=== PATIENT | female | born 1995 | race Caucasian/White ===

== ENCOUNTER 2018-09-30 10:18 | Day surgery (SDC) | payer OTHER ==
[2018-09-30] MEDS ORDERED: Adacel (T-DAP) 0.5 ML SYRINGE ONE (10:53)
[2018-09-30] MEDS ORDERED: Lidocaine 1% (PF) 30 ML VIAL ONE (10:56)
[2018-09-30] MEDS ORDERED: Bupivacaine 0.5% 10 ML VIAL ONE (10:56)
[2018-09-30] MEDS ORDERED: Ondansetron PF 4 MG/2 ML Vial ONE ×2 (10:56→13:05)
--- NOTE | 2018-09-30 11:16 | RAD ---
RIGHT FINGER THREE VIEWS: HISTORY: Laceration. Injury. COMPARISON: None. FINDINGS: There is a flexion deformity of the distal interphalangeal joint of the small finger with overlying s oft tissue defect. On the lateral radiograph, there may be a punctate radiopacity projecting over th e middle phalanx head. IMPRESSION: Likely extensor tendon injury at the distal interphalangeal joint of the small finger with overlying laceration and possibly a small punctate radiopaque foreign object projecting over the middle phalanx head, only seen on the lateral radiograph. POS: AMAURY
[2018-09-30 11:36] LABS: #Lymphocytes 1.1 thou/uL (1.20-3.40); #Monocytes 0.4 thou/uL (0.11-0.59); #Neutrophils 10.4 thou/uL (1.40-6.50); %Basophils 0.1 % (0.0-1.0); %Eosinophils 0.1 % (0.0-10.0); %Lymphocytes 8.8 % (21.0-51.0); %Monocytes 3.7 % (0.0-10.0); %Neutrophils 87.3 % (42.0-75.0); Hemoglobin 14.1 g/dL (12.0-16.0); Mean Corpuscular Volume 94.2 fL (78.0-98.0); Platelet Count 229 thou/uL (130-400); RBC Distribution Width 10.8 % (11.5-14.5); Red Blood Cell (RBC) Count 4.42 mill/uL (4.20-5.40); White Blood Cell (WBC) Count 11.9 thou/uL (4.8-10.8)
[2018-09-30 11:58] LABS: ALT (SGPT) 29 U/L (8-55); AST (SGOT) 30 U/L (5-34); Albumin 4.5 g/dL (3.5-5.0); Alkaline Phosphatase 48 U/L (40-150); Anion Gap 16 mmol/L (10-20); BUN (Urea Nitrogen) 15 mg/dL (7.0-18.7); Bilirubin, Total 0.4 mg/dL (0.2-1.2); Calc. Creatinine Clearance 0 mL/min (70-130); Calcium 10.2 mg/dL (7.8-10.44); Carbon Dioxide 22 mmol/L (22-29); Chloride 104 mmol/L (98-107); Estimated GFR-MDRD Greater than 90; Globulin 3.6 g/dL (2.4-3.5); Glucose 73 mg/dL (70-105); Potassium 4.5 mmol/L (3.5-5.1); Protein, Total 8.1 g/dL (6.0-8.3); Sodium 137 mmol/L (136-145)
[2018-09-30] MEDS ORDERED: Sodium Chloride 0.9% 10 ML ONE (13:01)
[2018-09-30] MEDS ORDERED: Bupivacaine PF 0.5% 30 ML VIAL ONE (13:01)
[2018-09-30] MEDS ORDERED: Bacitracin Zinc Ointment 30 gm TUBE ONE (13:01)
[2018-09-30] MEDS ORDERED: ePHEDrine 50 MG/ML VIAL ONE (13:05)
[2018-09-30] MEDS ORDERED: PHENYLEPHRINE-NS 100 MCG/ML 10 ML SYRINGE ONE (13:05)
[2018-09-30] MEDS ORDERED: Rocuronium Bromide 10 MG/ML (10ML VIAL) ONE (13:05)
[2018-09-30] MEDS ORDERED: PROPOFOL 200 MG/20 ML VIAL ONE (13:05)
[2018-09-30] MEDS ORDERED: Glycopyrrolate 0.2 MG/ML 5 ML SYRINGE ONE (13:05)
[2018-09-30] MEDS ORDERED: Fentanyl 100 MCG/2 ML VIAL ONE (13:23)
--- NOTE | 2018-09-30 13:26 | ULT ---
ULTRASOUND OBSTETRICAL COMPLETE: 09/30/2018 HISTORY: A 23-year-old female, status post abdominal trauma. Determine viability of fetus. FINDINGS: number: [place]. lie: Cephalic. Maternal cervix: At least 5 cm in length and closed. Placenta: Anterior. No placenta previa or abruption. Amniotic fluid volume: Subjectively normal. heart rate: 155 bpm. anatomy was not evaluated. biometry: Head circumference (HC): 13.5 cm 17w 0d Biparietal diameter (BPD): 3.4 cm 16w 4d Abdominal circumference (AC): 9.9 cm 16w 0d Femur length (FL): 2.3 cm 17w 0d Average ultrasound age (AUA): 16w 4d Estimated date of delivery (JYOTHI): 03/13/2019 Last menstrual period (LMP): 06/18/2018 Gestational age by LMP: 14w 6d Estimated weight (EFW): 159 g, +/- 24 g (0 lb 6 oz, +/- 1 oz). IMPRESSION: 1. Live early second trimester intrauterine gestation. 2. Estimated gestational age of 16 weeks, 4 days. 3. Vertex lie. MARIELENA Mcconnell POS: CHARLEEN
--- NOTE | 2018-09-30 17:24 | ULT ---
ULTRASOUND OB FOLLOWUP 09/30/18 HISTORY: Followup. COMPARISON: Ultrasound same day. FINDINGS/IMPRESSION: The cervix is measured at 5.7 cm. heart rate documented at 150 beats per minute. position is breech. movement is seen. POS: CHARLEEN
[2018-09-30 17:57] LABS: Amphetamine Not Detected (NotDetected); Barbiturates Screen Not Detected (NotDetected); Benzodiazepine Screen Not Detected (NotDetected); Cocaine Metabolite Screen Not Detected (NotDetected); Medtox Control Line Valid? VALID (VALID); Medtox Reader # READER 1; Methadone Not Detected (NotDetected); Methamphetamine Detected (NotDetected); Opiate Screen Not Detected (NotDetected); Oxycodone Screen Not Detected (NotDetected); Phencyclidine (PCP) Not Detected (NotDetected); THC/Cannabinoid Screen Detected (NotDetected); Tricyclic Screen Not Detected (NotDetected)
--- NOTE | 2018-09-30 18:16 | RAD ---
RIGHT FINGER MINIMUM 2 VIEW 09/30/18 HISTORY: Tendon repair and pain. COMPARISON: Radiograph same day. FINDINGS: Two spot fluoroscopic images were obtained. There appears to be percutaneous pin placement of the dis zac interphalangeal joint of the small finger. IMPRESSION: Fluoroscopy for surgical use. POS: HOME
--- NOTE | 2018-10-01 08:52 | OP ---
DATE OF PROCEDURE: 09/30/2018 PREOPERATIVE DIAGNOSES: 1. Right small finger open distal interphalangeal joint. 2. Right small finger 1 cm laceration. 3. Right small finger complete extensor tendon laceration, zone 1, near the insertion of the terminal tendon. 4. Patient is 16.4 weeks' estimated gestational age via femoral length ultrasound done preop, where we found normal fluid, normal heart rate and no evidence of intragestational problem with the child or environ. POSTOPERATIVE DIAGNOSES: 1. Right small finger open distal interphalangeal joint. 2. Right small finger 1 cm laceration. 3. Right small finger complete extensor tendon laceration, zone 1 near the insertion of the terminal tendon. 4. Patient is 16.4 weeks' estimated gestational age via femoral length ultrasound done preop, where we found normal fluid, normal heart rate and no evidence of intragestational problem with the child or environ. PROCEDURES PERFORMED: 1. Right small finger wound debridement. 2. Right small finger joint debridement #2 associated with open joint. 3. Right small finger distal interphalangeal joint pinning. 4. Extensor tendon repair, zone 1, complete laceration. 5. C-arm supervision. TOURNIQUET TIME: 17 minutes. ESTIMATED BLOOD LOSS: Approximately 5 mL. INDICATIONS: The patient reports that she is a female who "yawned very strongly and my hand punched through a window." In the emergency room, she presented with lacerations described above in the small finger, a small punctate laceration of the ring finger, but no other evidence of glass violation. Intraoperatively, however, we did see evidence of small scratches on the thorax near the 3rd and 4th ribs in midline, possible scratches on the left and right lower quadrants. DESCRIPTION OF PROCEDURE: After anesthesia by [facility], Dr. Mosqueda, the patient then had the limb prepped and draped. We then gave her 12 mL of 0.5% Marcaine block at the metacarpophalangeal joint level, waited 5 minutes, exsanguinated the limb, and inflated the tourniquet to 250 mmHg pressure. We extended the incision 1 cm proximal and 7 mm distally in a zigzag fashion and then the dermis and epidermis from the extensor tendon. We noticed there was adequate tendon for repair, but was 100% cut down to the level of collaterals. We then irrigated the joint, debrided of all material associated with open end to include the use of: 1. Tenotomy scissor, [place] blade, Adson's, and a 1 L irrigation. 2. Excisional technique for the debridement. 3. Down to and including the joint itself visualizing the volar plate with irrigation and debridement. 4. There was no gross contamination. We then debrided the wound using same instruments along the 9 mm to 10 mm wound edges. We then identified the tendon, placed a K-wire to reduce the joint and hold it still; 0.035, because the 0.045 appeared to be too big in the sagittal plane. Once we had secured the wire, we bent and cut it with 1 mm protruding from the skin, and then we repaired the extensor mechanism at its terminal with adequate tissue using a 5 [id number] 4-0 Prolene suture interrupted. We deflated tourniquet and obtained hemostasis. We closed the wound with interrupted 5-0 nylon in simple pattern, bulky dressing was applied along with a splint after cutting the wires described above and the C-arm had been used throughout the entire case. The splint was a short-arm splint with the wrist at 20 degrees dorsiflexion, MP joints at 20 degrees palmar flexion, and the other interphalangeal joints at 0 extension for the small and ring fingers. The other digits were free. She left the operating room to recovery, where we would began initially a workup to make sure the was viable again to include heart tones and followup ultrasound, type and screen with Rh factor, and if anything is significantly found, an PURCHASING MANAGER/SALES consult. We will also consult social studies department chair, who will review the patient with the spouse/significant other not present. Job ID: [id number]
== END 2018-09-30 18:42 | disposition home or self-care (01) ==
LOC: ERS 10:18 → SDC/OP 11:40
PROVIDERS: ATTEND Orthopaedic Surgery Hand Surgery
PROC: 0LQ70ZZ Repair Right Hand Tendon, Open Approach (ICD-10-PCS; principal; 2018-09-30)
DX: O9A.212 Injury, poisoning and certain other consequences of external causes complicating pregnancy, second trimester (principal); S66.326A Laceration of extensor muscle, fascia and tendon of right little finger at wrist and hand level, initial encounter; S61.216A Laceration without foreign body of right little finger without damage to nail, initial encounter; W22.8XXA Striking against or struck by other objects, initial encounter; Z3A.16 16 weeks gestation of pregnancy
CPT/HCPCS: 36415; 76000; 76815; 76816; 80053; 80306; 85025; 86900; 86901; 90715; 93005; J2001; J2405; J2704; J3010; J3490; S0020

== ENCOUNTER 2019-01-15 18:17 | Day surgery (SDC) | payer OTHER ==
[2019-01-15 19:09] VITALS: BMI 26.9
[2019-01-15] MEDS ORDERED: hydrALAZINE 20 MG/ML VIAL SLOW IVP PRN (20:20)
--- NOTE | 2019-01-16 08:07 | SS ---
DATE OF ADMISSION: 01/15/2019 DATE OF DISCHARGE: 01/15/2019 TIME OF SERVICE: 2000 hours. PRESENTING COMPLAINTS: Abdominal pain at 31 weeks. HISTORY OF PRESENT ILLNESS: Ms. Romero is a 23-year-old 3, para 2, who has had insufficient care. She has seen Dr. Blackwell for 2 visits and then was lost to followup at [facility]. She states that she has an appointment scheduled with Dr. Morales tomorrow. She states she had some mild abdominal pain earlier today and then says that she just really anxious and worried about her and had not been checked on in a while. She states the pain is now resolved. 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 Blood type O positive, antibody negative. Pap negative. Rubella immune. VDRL nonreactive. Hepatitis B, GC, chlamydia negative. Positive history of herpes and chlamydia. Positive history of urine drug screen positive for methamphetamines at another doctor's office and cannabinoids at [facility] during this . MEDICAL HISTORY: Denies. SURGICAL HISTORY: Finger and appendectomy. SOCIAL HISTORY: Denies tobacco, alcohol, or IV drug use. FAMILY HISTORY: Noncontributory. REVIEW OF SYSTEMS: Noncontributory. ALLERGIES: NONE. MEDICATIONS: None. PHYSICAL EXAMINATION: GENERAL: White female, in no acute distress. VITAL SIGNS: Blood pressure 118/72, pulse 85, respirations 18, temperature 98.2. HEENT: Within normal limits. LUNGS: Clear to auscultation bilaterally. HEART: Regular rhythm. ABDOMEN: Soft, nontender. Fundal height 31 cm. FHT is 140s. Vulva without lesions. Vaginal exam deferred. EXTREMITIES: No clubbing, cyanosis, or edema. heart rate tracing was carried out, which was category I with positive accelerations, no decelerations, no contractions noted. IMPRESSION: Insufficient care. No acute complaints. PLAN: Discharge home. Keep scheduled followup with Dr. Morales. Job ID: [id number]
== END 2019-01-15 20:11 | disposition home or self-care (01) ==
LOC: L&D/OP 18:17
PROVIDERS: ATTEND Family Medicine
DX: O99.89 Other specified diseases and conditions complicating pregnancy, childbirth and the puerperium (principal); R10.9 Unspecified abdominal pain; O09.33 Supervision of pregnancy with insufficient antenatal care, third trimester; Z3A.31 31 weeks gestation of pregnancy
CPT/HCPCS: 99282

== ENCOUNTER 2019-03-08 05:46 | Day surgery (SDC) | payer OTHER ==
[2019-03-08 06:25] VITALS: BMI 30.5
--- NOTE | 2019-03-08 07:22 | PDOC.FPROB ---
FMR OB H&P: HPI - History of Present Illness Chief Complaint: contractions Indentification: History of Present Illness: 23YO @ 38.5 weeks who presented to L&D with a CC of contractions that began around 0330 this morning. She admits to having had intercourse earlier in the evening but states that she had lower abdominal tightening that woke her up from sleep this morning. She then got us to us the bathroom and reportedly saw blood clots in the toilet that she says has since resolved. She denies any abnormal vaginal discharge, LOF, or itching/pain. Does endorse vaginal pressure but and regular movement. States she would like to go home if we do not think anything serious is going on because she is tired. 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 - Family History Family History: non-contributory FMR OB H&P: Medications - Current Home Medications: Medication Instructions Recorded Confirmed Type 21/Iron Fu/Folic Acid 1 tablet PO DAILY 03/08/19 03/08/19 History [ Complete Caplet] Allergies/Adverse Reactions: Allergies Allergy/AdvReac Type Severity Reaction Status Date / Time No Known Allergies Allergy Verified 03/08/19 06:25 FMR OB H&P: ROS - Review of Systems General: reports: fatigue. denies: fever/chills, recent trauma Eyes: denies: eye pain, vision changes ENT: denies: nasal congestion, rhinorrhea, sinus pain/pressure Cardiovascular: denies: chest pain, palpitation, edema Respiratory: denies: cough, shortness of breath Gastrointestinal: reports: abdominal pain. denies: nausea, vomiting Genitourinary (Female): reports: vaginal bleeding, contractions, vaginal pressure. denies: dysuria, hematuria, vaginal discharge, vaginal pain Musculoskeletal: reports: pain. denies: arthritis/arthralgias Neurologic: denies: syncope, headache Integumentary: denies: itching, lesions Psychological: denies: depression, anxiety FMR OB H&P: Vital Signs - Maternal Vital signs: HR 62 BP: WNLs - Heart Tones Baseline: 130 Variability: moderate Acceleration: present Deceleration: absent [place] contractions every: no regular contractions noted FMR OB H&P: Physical Exam - Physical Exam General: NAD, awake, alert and oriented HEENT: normocephalic and atraumatic, grossly normal vision, grossly normal hearing Neck: supple, FROM Heart: RRR, normal S1/S2, no murmurs/rubs/gallops, pulses present, other (trace , nonpitting edema in B/L feet noted) General: CTAB, no respiratory distress, good air movement, no rales/rhonchi, no wheezing, no retractions Abdomen: soft, gravid, non-tender, bowel sound present Musculoskeletal: normal gait and station, FROM in all four extremities Neurological: cranial nerves II through XII intact, sensation to pain,touch and proprioception grossly normal, no focal deficit Skin: no rash, good tugor, capillary refill <2 seconds, no jaundice Lymphatic: no unusual bruising or bleeding, no purpura, no petechia Psychiatric: intact recent and remote memory, good judgement and insight, normal mood and affect - Pelvic Exam SVE: 1.5/0/-2 FMR OB H&P: A/P - Problem List (1) Single in third trimester Current Visit: Yes Status: Acute Code(s): Z34.93 - ENCNTR FOR SUPRVSN OF NORMAL PREG, UNSP, THIRD TRIMESTER (2) Darion Alvarez' contraction Current Visit: Yes Status: Acute Code(s): O47.9 - FALSE LABOR, UNSPECIFIED Disposition: 23YO @ 38.5 weeks who presents to L&D for evaluation for reported contractions & vaginal bleeding that began at 0330 this morning. Abdominal pain: - Patient likely experiencing Nye Alvarez contractions as no regular contractions noted on monitor since arrival and FHTs reassuring with baseline in 130s, variability & accels noted. SVE also unchanged from last cervical check ~2 weeks ago in office per patient. She was 1.5 today adn reportedly 2cm dilated at that time. In addition, patient is resting comfortably in NAD & asking if she could go home. sIUP @ 38.5 weeks: - Aware, patient LIYAH for elective IOL on 03/11/19. Dispo: Will d/c home with instructions to call/f/u with PCP should contractions and/or bleeding return. Otherwise, can return for LIYAH induction as planned. Discussion: Date/Time: 03/08/19721 This H&P was discussed with [] and [] who agree with the above documentation and plan.
== END 2019-03-08 07:30 | disposition home health service (06) ==
LOC: L&D/OP 05:46
PROVIDERS: ATTEND Family Medicine
DX: O47.1 False labor at or after 37 completed weeks of gestation (principal); O46.93 Antepartum hemorrhage, unspecified, third trimester; Z3A.38 38 weeks gestation of pregnancy
CPT/HCPCS: 99282

== ENCOUNTER 2019-03-11 19:15 | Inpatient (IN) | payer OTHER ==
[2019-03-11] MEDS ORDERED: Promethazine HCl 25 MG/ML VIAL IM PRN (21:06)
[2019-03-11] MEDS ORDERED: NS / Oxytocin 40 units/1000ml 1,000 ML IV PRN (21:06)
[2019-03-11] MEDS ORDERED: Ondansetron PF 4 MG/2 ML Vial IVP PRN (21:06)
[2019-03-11] MEDS ORDERED: Methylergonovine 0.2 MG/ML VIAL IM PRN (21:06)
[2019-03-11] MEDS ORDERED: Butorphanol Tartrate 1 MG/ML VIAL SLOW IVP PRN (21:06)
[2019-03-11] MEDS ORDERED: NS w/ Oxytocin 10 units 500 ML IV SCH ×2 (21:06)
[2019-03-11] MEDS ORDERED: Carboprost 250 MCG/ML AMP IM PRN (21:06)
[2019-03-11] MEDS ORDERED: hydrALAZINE 20 MG/ML VIAL SLOW IVP PRN (21:06)
[2019-03-11] MEDS ORDERED: Ibuprofen 800 MG TAB PO PRN (21:06)
[2019-03-11] MEDS ORDERED: HYDROcodone/Acetaminophen 5/325 mg Tablet PO PRN (21:06)
[2019-03-11] MEDS ORDERED: Diphenoxylate HCl/Atropine Tablet PO PRN (21:06)
[2019-03-11] MEDS ORDERED: Lidocaine 1% (PF) 30 ML VIAL SC PRN (21:06)
[2019-03-11] MEDS ORDERED: Penicillin G Potassium 5 MILL.UNITS in Sodium Chloride 0.9% 100 ML IVPB SCH (21:06)
[2019-03-11] MEDS: Misoprostol 100 MCG TAB PO SCH (22:47)
[2019-03-11] MEDS: Lactated Ringer's 1,000 ML IV SCH (22:47)
[2019-03-11 23:03] LABS: Hemoglobin 13.2 g/dL (12.0-16.0); Mean Corpuscular HGB CONC 34.3 g/dL (32.0-36.0); Mean Corpuscular Hemoglobin 31.1 pg (27.0-31.0); Mean Corpuscular Volume 90.8 fL (78.0-98.0); Mean Platelet Volume 11.1 fL (7.4-10.4); Platelet Count 170 thou/uL (130-400); RBC Distribution Width 11.8 % (11.5-14.5); Red Blood Cell (RBC) Count 4.25 mill/uL (4.20-5.40); White Blood Cell (WBC) Count 9.2 thou/uL (4.8-10.8)
[2019-03-11 23:36] LABS: HBSAg Index 0.41 S/CO (0-0.99); Hep B Surf Ag Non-Reactive S/CO (NonReactive)
[2019-03-11 23:42] LABS: Syphilis Antibody Nonreactive (Nonreactive); Syphilis Antibody Index 0.03 S/CO (<1.00 Non-Reactive)
[2019-03-12] MEDS: Penicillin G 2.5 MILL.units 2.5 MILL.UNITS in Premix Bag 1 BAG IVPB SCH ×4 (00:12→11:33)
[2019-03-12 00:26] VITALS: BMI 30.2
[2019-03-12] MEDS: Misoprostol 100 MCG TAB PO SCH ×2 (01:52→06:37)
[2019-03-12 04:58] LABS: Amphetamine Not Detected (NotDetected); Barbiturates Screen Detected (NotDetected); Benzodiazepine Screen Not Detected (NotDetected); Cocaine Metabolite Screen Not Detected (NotDetected); Medtox Control Line Valid? VALID (VALID); Medtox Reader # READER 1; Methadone Not Detected (NotDetected); Methamphetamine Not Detected (NotDetected); Opiate Screen Not Detected (NotDetected); Oxycodone Screen Not Detected (NotDetected); Phencyclidine (PCP) Not Detected (NotDetected); THC/Cannabinoid Screen Detected (NotDetected); Tricyclic Screen Not Detected (NotDetected)
[2019-03-12] MEDS: Lactated Ringer's 1,000 ML IV SCH ×3 (06:38→09:47)
[2019-03-12] MEDS ORDERED: Fentanyl 4 mcg/Bup 0.1% Cadd 100 ML ONE (06:45)
[2019-03-12] MEDS ORDERED: Acetaminophen 325 MG TAB PO PRN (08:13)
[2019-03-12] MEDS ORDERED: Promethazine HCl 25 MG/ML VIAL IM PRN ×2 (08:13→15:23)
[2019-03-12] MEDS ORDERED: Naloxone HCl 0.4 mg/ml Vial IVP PRN ×2 (08:13)
[2019-03-12] MEDS ORDERED: ePHEDrine/0.9% NaCl/PF SYRINGE 50 mg/10 ml SLOW IVP PRN (08:13)
[2019-03-12] MEDS ORDERED: diphenhydrAMINE 50 MG/ML VIAL IVP PRN (08:13)
[2019-03-12] MEDS ORDERED: Ondansetron PF 4 MG/2 ML Vial IVP PRN ×2 (08:13→15:23)
[2019-03-12] MEDS ORDERED: Lactated Ringer's 500 ML IV PRN (08:13)
[2019-03-12] MEDS ORDERED: Communication Order-Pharmacy FS SCH (08:15)
[2019-03-12] MEDS ORDERED: Fentanyl 4 mcg/Bupivacaine 0.1% Cassette 100 ML EPIDURAL SCH (08:15)
[2019-03-12] MEDS ORDERED: Bupivacaine/Epinephrine 0.25% 30 ML VIAL ONE (11:11)
[2019-03-12] MEDS: NS / Oxytocin 40 units/1000ml 1,000 ML IV SCH ×2 (12:18→13:30)
[2019-03-12] MEDS ORDERED: Bisacodyl 10 MG SUPP PR PRN (15:23)
[2019-03-12] MEDS ORDERED: HYDROcodone/Acetaminophen 5/325 mg Tablet PO PRN ×2 (15:23)
[2019-03-12] MEDS ORDERED: diphenhydrAMINE 25 MG CAP PO PRN (15:23)
[2019-03-12] MEDS ORDERED: Milk Of Magnesia 30 ML UDCUP PO PRN (15:23)
[2019-03-12] MEDS ORDERED: Benzocaine-Menthol 82.5 ML CAN TOP PRN (15:23)
[2019-03-12] MEDS ORDERED: hydrALAZINE 20 MG/ML VIAL SLOW IVP PRN (15:23)
[2019-03-12] MEDS: Ferrous Sulfate 325 MG TAB PO SCH (16:17)
[2019-03-12] MEDS: Ibuprofen 800 MG TAB PO SCH (21:51)
[2019-03-12] MEDS: Docusate Calcium (SURFAK) 240 MG CAP PO SCH (21:52)
[2019-03-13 05:15] LABS: #Eosinphils 0.1 thou/uL (0.0-0.7); #Monocytes 0.9 thou/uL (0.11-0.59); %Lymphocytes 27.1 % (21.0-51.0); %Neutrophils 63.9 % (42.0-75.0); Hemoglobin 12.6 g/dL (12.0-16.0); Mean Corpuscular HGB CONC 33.5 g/dL (32.0-36.0); Mean Corpuscular Volume 92.7 fL (78.0-98.0); Mean Platelet Volume 10.3 fL (7.4-10.4); Platelet Count 138 thou/uL (130-400); RBC Distribution Width 11.6 % (11.5-14.5); Red Blood Cell (RBC) Count 4.06 mill/uL (4.20-5.40); White Blood Cell (WBC) Count 10.9 thou/uL (4.8-10.8)
[2019-03-13] MEDS: Ibuprofen 800 MG TAB PO SCH ×2 (06:36→13:54)
[2019-03-13 08:09] VITALS: BP 111/51; TEMP 97.7
[2019-03-13] MEDS: Ferrous Sulfate 325 MG TAB PO SCH ×2 (08:40→17:51)
[2019-03-13] MEDS: Penicillin G 2.5 MILL.units 2.5 MILL.UNITS in Premix Bag 1 BAG IVPB SCH (08:42)
[2019-03-13] MEDS: Lactated Ringer's 1,000 ML IV SCH (08:42)
[2019-03-13] MEDS: Docusate Calcium (SURFAK) 240 MG CAP PO SCH (08:46)
[2019-03-13] MEDS ORDERED: Adacel (T-DAP) 0.5 ML SYRINGE IM ONE (09:00)
[2019-03-13] MEDS ORDERED: Prenatal Vitamin 1 TAB PO SCH (09:00)
== END 2019-03-13 18:35 | disposition home or self-care (01) | DRG 807 ==
LOC: L&D 19:17 → 3SW 03-12 15:31
PROVIDERS: ADMIT Family Medicine; ATTEND Family Medicine
PROC: 10E0XZZ Delivery of Products of Conception, External Approach (ICD-10-PCS; principal; 2019-03-12)
PROC: 10907ZC Drainage of Amniotic Fluid, Therapeutic from Products of Conception, Via Natural or Artificial Opening (ICD-10-PCS; 2019-03-12)
DX: O80 Encounter for full-term uncomplicated delivery (principal); Z37.0 Single live birth; Z3A.39 39 weeks gestation of pregnancy
CPT/HCPCS: 36415; 36416; 80306; 85025; 85027; 86780; 86850; 86900; 86901; 87340; J0595; J2001; J2405; J2540; J2590; J3490